=== PATIENT | female | born 1985 | race Caucasian/White ===

== ENCOUNTER 2016-07-11 22:49 | Emergency (ER) | payer BC ==
[~2016-07-11] VITALS: Ht 180.3 cm; Wt 59.0 kg
[2016-07-11 23:39] VITALS: BP 110/71
[2016-07-11] MEDS ORDERED: ATIVAN0.5 MG ORAL (23:46)
--- NOTE | 2016-07-11 23:47 | Emergency Room Report ---
History of Present Illness General Chief Complaint: Behavioral Complaint Source: Patient Present Illness HPI Is a 30-year-old [facility] female with no past history. She presents with chief complaint of depression. His been ongoing for several months but worse in the last few days. She was in a relationship that recently broke up. She got back together with that gentleman but they did not work out yesterday. She been feeling more depressed. No suicidal thought homicidal thought. Unable to sleep much. Denies any hallucination. Said that she only had 2 sips of alcohol tonight. her second complaint is right third finger pain is been ongoing for a long period time. It comes and go. localized to third finger. Allergies: Coded Allergies: No Known Allergies (Unverified , 07/11/16) Patient History Past Medical History: none, see triage record, old chart reviewed Past Surgical History: none Pertinent Family History: none Social History: Reports: alcohol use Last Menstrual Period: 2 weeks ago Now: No Immunizations: other Reviewed Nursing Documentation: PMH: Agreed, PSxH: Agreed Nursing Documentation-PMH History Of Psychiatric Problem: Yes - DEPRESSION Review of Systems Eye: Denies: blurred vision, eye pain ENT: Denies: ear pain, nose congestion, throat swelling Respiratory: Denies: cough, shortness of breath Cardiovascular: Denies: chest pain, palpitations Gastrointestinal: Denies: abdominal pain, diarrhea, nausea, vomiting Musculoskeletal: Denies: back pain, joint pain Skin: Denies: rash Neurological: Denies: headache, numbness Endocrine: Denies: increased thirst, increased urine Hematologic/Lymphatic: Denies: easy bruising All Other Systems: negative except mentioned in HPI Physical Exam Vital Signs Date Time Temp Pulse Resp B/P Pulse Ox O2 Delivery O2 Flow Rate FiO2 07/11/16 23:06 97.2 72 16 109/72 100 Room Air vitals normal Sp02 EP Interpretation: reviewed, normal General Appearance: well appearing, no apparent distress, alert Head: normocephalic, atraumatic Eyes: bilateral eye EOMI, bilateral eye PERRL ENT: hearing grossly normal, normal pharynx Neck: full range of motion, supple, no meningismus Respiratory: chest non-tender, lungs clear, normal breath sounds Cardiovascular #1: regular rate, rhythm, no murmur Gastrointestinal: normal bowel sounds, non tender, no mass, no organomegaly, no bruit, non-distended Musculoskeletal: back normal, gait/station normal, normal range of motion, other - Right third finger: Mild tenderness over the second phalanx. Range of motion. Sensation normal. Neurologic: alert, oriented x3 Psychiatric: depressed affect Skin: warm/dry Medical Decision Making Diagnostic Impression: Primary Impression: Major depression, single episode Qualified Codes: F32.9 - Major depressive disorder, single episode, unspecified Additional Impression: Finger pain, right ER Course Patient presents with depression and stress reaction. No evidence of suicidal thoughts or homicidal thought. No hallucination. No criteria for 5150. We'll refer her to outpatient mental health. Last Vital Signs Date Time Temp Pulse Resp B/P Pulse Ox O2 Delivery O2 Flow Rate FiO2 07/11/16 23:39 97.2 68 14 110/71 100 Room Air Status: improved Disposition: HOME, SELF-CARE Condition: Stable Scripts Lorazepam* (ATIVAN*) 0.5 Mg Tablet 0.5 MG ORAL THREE TIMES A DAY, #21 TAB Prov: KLAUDIA FELIPE M.D. 07/11/16 Additional Instructions: Followup with mental health clinic in 2-3 days. Return if symptom worsen. KLAUDIA FELIPE M.D. Jul 11, 2016 23:47
[2016-07-12 00:05] VITALS: BP 110/71
--- NOTE | 2016-07-12 11:06 | Diagnostic Imaging Report ---
Indication: PAIN Technique: 3 views of the right middle finger Comparison: None Findings: No acute fractures. No dislocations. The joint spaces are preserved Impression: Negative
== END 2016-07-12 00:05 | disposition home or self-care (01) ==
LOC: EMR 23:28
DX: F32.9 Major depressive disorder, single episode, unspecified (principal); M79.644 Pain in right finger(s)
CPT/HCPCS: 99283